=== PATIENT | female | born 1965 | race Caucasian/White ===

== ENCOUNTER 2019-04-02 09:47 | Emergency (ER) | payer SELFPAY ==
--- NOTE | 2019-04-02 10:10 | ED Physician Documentation ---
Abscess - HISTORIAN Historian: patient - HPI Stated Complaint: spider bite Chief Complaint: Abscess (? Spider Bite to Forehead) Additional Information: 53 year old female presents with c/o spider bite to the middle of forehead; not iced it 2 days ago; has had some yellowish drainage. Denies any f/c/n/c/d. Onset: days ago Timing: still present Duration: persistent since Location: facial Quality: none Identified Cause?: Yes (spider) Where: home Context: Medication Exposure: none Context: Food Exposure: none Context: Other Exposure: spider bite - ROS CONST: none CVS/RESP: none EYES/ENT: other (noted some minimal swelling to upper brows) GI/: none MS/SKIN/LYMPH: none NEURO/PSYCH: none - PAST HX Past History: other (bipolar, schizophrenia, depression, anxiety) Other History: none Surgeries/Procedures: Yes (appy, D&C, tonsils, rib fx with tube, bilateral leg fxs) Immunizations: UTD Allergies/Adverse Reactions: Allergies Allergy/AdvReac Type Severity Reaction Status Date / Time No Known Allergies Allergy Verified 04/02/19 10:02 Home Medications: Ambulatory Orders Medication Instructions Recorded Sulfamethoxazole/Trimethoprim 1 each PO BID #14 tab 04/02/19 [Bactrim Ds] - SOCIAL HX Smoking History: greater than 1 pack/day Alcohol Use: none Drug Use: none - FAMILY HX Family History: none - REVIEWED ASSESSMENTS Nursing Assessment Reviewed: Yes Vitals Reviewed: Yes Abscess Physical Exam - EXAM General Appearance: no acute distress, alert Skin: warm,dry, abscess (previously drained; scabbed), erythema Location: face (forehead) Character: other (circular, scabbed) Symptoms: swelling, crusting Extremities: non-tender, nml ROM EENT: eyes nml inspection, lips nml, gums nml, pharynx nml Neck: no swelling Respiratory: breath sounds normal CVS: heart sounds nml Neuro/Psych: oriented x3, CN's nml as tested, motor nml, sensation nml, mood/affect nml Discharge Clincal Impression: Cellulitis of forehead, Spider bite Referrals: Primary Doctor,No [Primary Care Provider] - 2 Days Additional Instructions: Take Antibiotic as directed (Bactrim DS 1 tab by mouth twice a day for 7 days) Do not pick May use warm moist heat to affected area Apply antibiotic ointment several times a day Good handwashing Follow up with PCP next week Condition: Good Disposition: 01 HOME, SELF-CARE Decision to Admit: NO Decision Time: 10:14
[2019-04-02 10:11] VITALS: BP 126/76
== END 2019-04-02 10:11 | disposition home or self-care (01) ==
LOC: ED 09:47
DX: L03.811 Cellulitis of head [any part, except face] (principal); T63.301A Toxic effect of unspecified spider venom, accidental (unintentional), initial encounter
CPT/HCPCS: 99282